=== PATIENT | male | born 1990 | race Hispanic/Latino ===

== ENCOUNTER 2021-12-30 22:56 | Emergency (ER) | payer OTHER ==
[~2021-12-30] VITALS: Ht 157.5 cm; Wt 80.7 kg
[2021-12-30 23:35] LABS: BASOPHILS % (AUTO) 0.5 % (0.0-5.0); HEMATOCRIT 46.5 % (42-54); LYMPHOCYTES % (AUTO) 31.9 % (21.0-51.0); MEAN CORPUSCULAR HEMOGLOBIN 29.5 pg (27.0-33.0); MEAN CORPUSCULAR HGB CONC 34.8 g/dL (32.0-36.0); MEAN CORPUSCULAR VOLUME 84.5 fL (79-99); MONOCYTES % (AUTO) 7.9 % (3.0-13.0); NEUTROPHILS % (AUTO) 56.5 % (40.0-77.0); PLATELET COUNT (AUTO) 228 K/uL (130-400); RED CELL DISTRIBUTION WIDTH 12.7 % (11.0-15.5); WHITE BLOOD COUNT (AUTO) 8.6 K/uL (4.8-10.8)
[2021-12-30 23:51] LABS: CREATININE 1.1 mg/dL (0.5-1.5); POTASSIUM 3.6 mmol/L (3.5-5.1)
[2021-12-30 23:55] LABS: TOTAL PROTEIN, SERUM 7.7 g/dL (6.0-8.3)
[2021-12-31 01:52] VITALS: BP 123/89
[2021-12-31] MEDS ORDERED: KETOROLAC 30MG VIAL (30MG/ML) IVP ONE (02:30)
[2021-12-31 02:38] LABS: APPEARANCE,URINE EX.TURBID (CLEAR); BILIRUBIN,URINE NEGATIVE (NEGATIVE); COLOR,URINE YELLOW (YELLOW); GLUCOSE, URINE (UA) NEGATIVE (NEGATIVE); KETONES,URINE NEGATIVE (NEGATIVE); LEUKOCYTE ESTERASE ,URINE NEGATIVE Leu/uL (NEGATIVE); NITRATE,URINE NEGATIVE (NEGATIVE); OCCULT BLOOD,URINE NEGATIVE (NEGATIVE); PROTEIN,URINE 20 mg/dL (NEGATIVE); UROBILINOGEN,URINE 3 mg/dL (0.2-1.0)
[2021-12-31 02:47] LABS: MUCUS,URINE RARE LPF (None Seen); SQUAMOUS EPITHELIAL CELL,UR RARE /HPF (0-2); YEAST,URINE BUDDING FEW /HPF (None Seen)
[2021-12-31] MEDS ORDERED: IOHEXOL 350 MG/ML 100ML INFUS..BTL IV ONE (03:32)
[2021-12-31] MEDS ORDERED: IBUP-2070 PO (05:32)
== END 2021-12-31 05:39 | disposition home or self-care (01) ==
LOC: EDH 22:56
DX: R07.89 Other chest pain (principal); R03.0 Elevated blood-pressure reading, without diagnosis of hypertension; Z79.1 Long term (current) use of non-steroidal anti-inflammatories (NSAID)
CPT/HCPCS: 99285; 84484; 80053; 85025; 81001; 36415; 93005; 96374; 71260; 71046; J1885; Q9967

== ENCOUNTER 2024-05-30 15:12 | Emergency (ER) | payer SELFPAY ==
[~2024-05-30] VITALS: Ht 177.8 cm; Wt 93.0 kg
[~2024-05-30 15:12] MED LIST: IBUP-2070 PO
--- NOTE | 2024-05-30 15:48 | ERN ---
ED Note History of Present Illness Stated Complaint: FOREARM PAIN Chief Complaint: Upper Extremity Pain/Injury Time Seen by MD: 15:15 Dictation: Patient states he was working around a piece of machinery with a long sleeve shirt on at 13:00 this afternoon. He states the sleeve of the shirt caught his arm and twisted it this afternoon. Skin is intact but he is having pain to the forearm with full range of motion noted. Distal neurovascular CMS intact, nothing has been taken prior to arrival for pain. Allergies: Coded Allergies: No Known Drug Allergies (Unverified Allergy, Unknown, 12/30/21) Home Meds Active Scripts Ibuprofen (Ibuprofen) 600 Mg Tablet, 600 MG PO Q6H PRN for PAIN, #30 TAB 0 Refills Prov:SMILEY CRAMER MD 12/31/21 Past Medical History Past Medical History: No Pertinent History Surgical History: None RN Note Reviewed/Agreed w/PFSH: Yes Review of System Dictation CONSTITUTIONAL: Negative except for HPI HEAD/FACE: Negative except for HPI EENT: Negative except for HPI RESPIRATORY: Negative except for HPI GASTROINTESTINAL/ABDOMINAL: Negative except for HPI GENITOURINARY: Negative except for HPI MUSCULOSKELETAL: Negative except for HPI right forearm pain INTEGUMENTARY: Negative except for HPI NEUROLOGICAL/PSYCH: Negative except for HPI HEMATOLOGIC/LYMPHATIC: Negative except for HPI All Systems Negative, Except as noted above. 13 point review of systems assessed and all negative except for above. Initial Vital Sign VS Vital Signs Date Time Temp Pulse Resp B/P (MAP) Pulse Ox O2 Delivery O2 Flow Rate FiO2 05/30/24 15:44 97.5 89 20 156/97 97 Room Air 0 Physical Exam Dictation Vital Signs reviewed General Appearance: Alert, oriented x 3, mild acute distress, well developed, nourished. Head and Face: non-traumatic. Eyes: PERRL, pink conjunctivas, eyelid no trauma, anterior chamber with arcus senilis. Ears: Pinnas intact and no signs of trauma or erythema ear canals clear and no discharge TM no erythema Nose: No discharge, no bleeding. Oropharynx: Mouth normal, tongue pink, pharynx clear,no erythema, tonsils no exudates, no abscesses noted, mucous membrane moist Neck: Supple, non-tender, no thyromegaly, no masses, no JVD, no bruits Breast:Deferred Chest:No tenderness, no crepitus, no paradoxical movement, no retractions Lungs:Clear, well-ventilated, symmetric, no rales, no wheezing, no rhonchi, no stridor, good breath sounds bilaterally Heart: Regular rate, regular rhythm, no murmur, no gallops Vascular: no peripheral edema, Abdomen: Soft, positive bowel sounds, nondistended, no guarding, nontender, no rebound, no masses no hepatomegaly, no splenomegaly, no Monae's sign, no hernias. Rectal: Deferred Genital: Deferred Neurological: Normal speech, motor function intact, sensory function intact Musculoskeletal: Neck nontender, full range of motion, back nontender, full range of motion, Extremities: Diffuse right forearm pain. Skin is intact full range of motion, full range of motion Skin: Color pink, dry, no turgor, no rash, no lacerations, no abrasions, no contusions. Lymphatic: Deferred Results (Laboratory/Radiology) Laboratory/Radiology RIGHT FOREARM X-RAY NEGATIVE Labs Reviewed?: Yes ED Course ED Course Orders Procedure Category Date Status Time Forearm 2vws Rt RAD 05/30/24 Taken 15:46 Ibuprofen 800 Mg Tab PHA 05/30/24 Complete (Motrin) 16:00 Sling KAYLA 05/30/24 In Process 15:46 Current Medications Medications (Trade) Dose Ordered Sig/Kulwant Route PRN Reason Start Time Stop Time Status Last Admin Dose Admin Ibuprofen (moTRIN) 800 mg ONCE ONCE PO 05/30/24 16:00 05/30/24 16:01 DC Vital Signs Date Time Temp Pulse Resp B/P (MAP) Pulse Ox O2 Delivery O2 Flow Rate FiO2 05/30/24 15:44 97.5 89 20 156/97 97 Room Air 0 1728 PATIENT WILL BE DISCHARGED HOME NEUROLOGICALLY INTACT WITH FOREARM SPRAIN CMS INTACT Medical Decision Making MDM MEDICAL DISCHARGE MAKING BASED ON X-RAY OF RIGHT FOREARM AND PAIN MANAGEMENT. X-RAY NEGATIVE PATIENT DISCHARGED WITH FOREARM SPRAIN TOLD FOLLOW UP WITH THE ORTHOPEDIC SURGEON NEXT 1-2 DAYS. DX & DISP Disposition: Discharge Departure Impression: Primary Impression: Sprain of right forearm Condition: Stable Scripts Ibuprofen (Ibuprofen 800 mg Tab) 800 Mg Tab 800 MG PO Q8H PRN for fever or pain, #30 TAB 0 Refills Prov: ARNOLDO URBANO [employer]RUB PLANTER 05/30/24 Additional Instructions: FOLLOW-UP WITH PRIMARY CARE PROVIDER IN 1 TO 2 DAYS. TAKE MEDICATIONS DIRECTED HERE IN THE EMERGENCY ROOM. OKAY TO CONTINUE HOME MEDICATIONS UNLESS OTHERWISE DISCUSSED DURING YOUR VISIT IN THE EMERGENCY ROOM TODAY. RETURN TO YOUR NEAREST EMERGENCY ROOM IF SYMPTOMS WORSEN OR IF THERE IS NO IMPROVEMENT. CALL 911 IF YOU NEED IMMEDIATE ASSISTANCE. TAKE TYLENOL OR MOTRIN [id number] NEEDED AND IF NO CONTRAINDICATIONS ARE PRESENT. INCREASE ORAL HYDRATION. A WOUND CULTURE OR URINE CULTURE WAS ORDERED HERE IN THE EMERGENCY ROOM DEPARTMENT PLEASE FOLLOW-UP WITH PRIMARY CARE PROVIDER AND ADVISE THEM TO GET REPEAT PORTS FROM OUR FACILITY. IF YOU HAD ANY TAY WRAP/SPLINTS THAT WERE APPLIED HERE, PLEASE DO NOT REMOVE THEM UNTIL YOU SEE YOUR PRIMARY CARE OR SPECIALTY. SLING AND NO WEIGHT-BEARING TO RIGHT ARM UNTIL CLEARED BY ORTHOPEDIC SURGEON OR YOUR DOCTOR. APPLY COOL COMPRESSES TO PAIN THREE TO 4 TIMES A DAY. Referrals: PRISCILLA GUERRERO MD (PCP) RENÉE UREÑA MD Time of Disposition: 17:28 I have reviewed the case, and I agree with, Diagnosis and Plan ARNOLDO URBANO NP May 30, 2024 15:48
[2024-05-30] MEDS ORDERED: IBUP-2077 PO (17:29)
[2024-05-30] MEDS: ibuPROFEN 800 MG TAB PO ONE (17:39)
[2024-05-30 18:22] VITALS: BP 151/89; PULSE 85; RESP 18; TEMP 97.9; O2SAT 99
--- NOTE | 2024-05-30 18:31 | HMCIMG ---
RIGHT FOREARM RADIOGRAPHS - 2 VIEWS INDICATION: Pain COMPARISON: None FINDINGS: AP and lateral views. No acute fracture or subluxation identified. No radiopaque foreign body noted. IMPRESSION: No evidence for fracture or dislocation.
== END 2024-05-30 18:23 | disposition home or self-care (01) ==
LOC: EDH 15:12
DX: S53.401A Unspecified sprain of right elbow, initial encounter (principal); X50.1XXA Overexertion from prolonged static or awkward postures, initial encounter; Y93.89 Activity, other specified; Y92.89 Other specified places as the place of occurrence of the external cause; Y99.8 Other external cause status
CPT/HCPCS: 29105; 73090; 99283